=== PATIENT | male | born 1960 ===

== ENCOUNTER 2017-01-15 09:33 | Emergency (ER) | payer BC ==
[2017-01-15 09:48] VITALS: BMI 29.1
[2017-01-15 10:39] LABS: BASO % 0.4 % (0.0-2.0); EOS # 0.2 K/uL (0.0-0.7); EOS % 1.5 % (0.0-4.0); HEMOGLOBIN 14.4 g/dL (12.0-18.0); LYMPH # 2.2 K/uL (1.0-4.3); LYMPH % 20.6 % (20.0-40.0); MEAN CELL VOLUME 89.5 fl (80.0-94.0); MEAN CORPUSCULAR HEMOGLOBIN 29.6 pg (27.0-31.0); MEAN CORPUSCULAR HGB CONC 33.1 g/dL (33.0-37.0); MEAN PLATELET VOLUME 9.1 fl (7.2-11.7); MONO # 0.9 K/uL (0.0-0.8); MONO % 7.9 % (0.0-10.0); NEUT # 7.5 K/uL (1.8-7.0); NEUT % 69.6 % (50.0-75.0); NRBC % 0.1 % (0.0-0.0); RBC 4.86 Mil/uL (4.40-5.90); RED CELL DISTRIBUTION WIDTH 13.2 % (11.5-14.5); WHITE BLOOD COUNT 10.8 K/uL (4.8-10.8)
[2017-01-15 10:49] LABS: ALB/GLOB RATIO 1.5 (1.0-2.1); ALBUMIN 4.4 g/dL (3.5-5.0); ALT/SGPT 46 U/L (21-72); AST/SGOT 26 U/L (17-59); BLOOD UREA NITROGEN 21 mg/dl (9-20); CALCIUM 9.3 mg/dL (8.4-10.2); GFR AFRICAN-AMERICAN > 60; GFR NON-AFRICAN AMERICAN > 60; LIPASE 158 U/L (23-300)
[2017-01-15] MEDS ORDERED: Iohexol 300 100 ML IJ ONE (10:54)
[2017-01-15] MEDS ORDERED: Sodium Chloride 0.9% 50 ML IV ONE (10:54)
[2017-01-15 11:02] LABS: INR 0.9 (0.9-1.2); PARTIAL THROMBOPLASTIN TIME 30.7 Seconds (25.6-37.1)
--- NOTE | 2017-01-15 11:40 | ED PDOC ---
HPI: Abdomen Time Seen by Provider: 01/15/17 09:53 Chief Complaint (Nursing): Abdominal Pain Chief Complaint (Provider): Abdominal Pain History Per: Patient History/Exam Limitations: no limitations Onset/Duration Of Symptoms: Days (x 2) Current Symptoms Are (Timing): Still Present Location Of Pain/Discomfort: RLQ Additional Complaint(s): Sean Kahn is a 56 y/o male with a past medical history of hypertension who presents to the emergency department complaining of abdominal pain in the right lower quadrant, ongoing for 2 days. Patient reports having similar episodes of pain in the past, and in 07/[address] scan at a hospital in [place] that was reportedly normal. He was diagnosed with constipation and treated with pain medication, but now the pain has returned. Patient denies fever, nausea, vomiting, diarrhea, constipation, dysuria, and incontinence. PMD: Unknown Past Medical History Reviewed: Historical Data, Nursing Documentation, Vital Signs Vital Signs: Last Vital Signs Temp 98.4 F 01/15/17 14:00 Pulse 64 01/15/17 14:00 Resp 18 01/15/17 14:00 BP 119/71 01/15/17 14:00 Pulse Ox 97 01/15/17 14:00 - Medical History PMH: Diabetes, HTN Denies: Chronic Kidney Disease - Surgical History Surgical History: No Surg Hx - Family History Family History: States: Unknown Family Hx - Social History Current smoker - smoking cessation education provided: No Alcohol: Social Drugs: Denies - Immunization History Hx Tetanus Toxoid Vaccination: No Hx Influenza Vaccination: No Hx Pneumococcal Vaccination: No - Home Medications Home Medications: Ambulatory Orders Medication Instructions Recorded Ciprofloxacin [Cipro] 500 mg PO BID #14 tab 01/15/17 metroNIDAZOLE [Flagyl] 500 mg PO TID #21 tab 01/15/17 traMADol [Ultram] 50 mg PO Q6H PRN #5 tab 01/15/17 - Allergies Allergies/Adverse Reactions: Allergies Allergy/AdvReac Type Severity Reaction Status Date / Time No Known Allergies Allergy Verified 01/15/17 09:53 Review of Systems ROS Statement: Except As Marked, All Systems Reviewed And Found Negative Constitutional: Negative for: Fever Gastrointestinal: Positive for: Abdominal Pain (Right lower quadrant). Negative for: Nausea, Vomiting, Diarrhea, Constipation Genitourinary Male: Negative for: Dysuria, Frequency, Incontinence Physical Exam - Reviewed Nursing Documentation Reviewed: Yes Vital Signs Reviewed: Yes - Physical Exam Appears: Positive for: Non-toxic, No Acute Distress Head Exam: Positive for: ATRAUMATIC, NORMAL INSPECTION, NORMOCEPHALIC Skin: Positive for: Normal Color, Warm, Dry Eye Exam: Positive for: EOMI, Normal appearance, PERRL ENT: Positive for: Normal ENT Inspection Neck: Positive for: Normal, Painless ROM, Supple Cardiovascular/Chest: Positive for: Regular Rate, Rhythm. Negative for: Murmur Respiratory: Positive for: Normal Breath Sounds. Negative for: Accessory Muscle Use, Respiratory Distress Gastrointestinal/Abdominal: Positive for: Tenderness (Right-sided mid abdominal tenderness). Negative for: Normal Exam, Guarding, Rebound Back: Positive for: Normal Inspection. Negative for: Vertebral Tenderness Extremity: Positive for: Normal ROM. Negative for: Pedal Edema, Deformity Neurologic/Psych: Positive for: Alert, Oriented - Laboratory Results Result Diagrams: 01/15/17 10:25 01/15/17 10:25 Medical Decision Making Medical Decision Making: Time: 10:25 Initial Impression: Abdominal Pain Initial Plan: --Labs --EKG --Morphine 2 mg IV --Pending CT Abd/Pelvis --Reevaluation Time: 11:45 --Patient with persistent pain --Morphine 2 mg IV Time: 12:08 CT Abd/Pelvis FINDINGS: LOWER THORAX: Bibasilar atelectasis. No significant pleural effusion or pneumothorax. Small hiatal hernia/distal esophageal wall thickening. LIVER: Hypoattenuation of the liver compatible with hepatic steatosis. GALLBLADDER AND BILE DUCTS: Unremarkable. PANCREAS: Unremarkable. SPLEEN: Unremarkable. ADRENALS: Unremarkable. KIDNEYS AND URETERS: 18 mm right renal low-density lesion. 9 mm right upper pole renal hypodensity, too small to characterize. No hydronephrosis. No obstructing calculus. VASCULATURE: No aortic aneurysm. BOWEL: Stomach is nondistended. Lack of oral contrast limits evaluation for bowel pathology. Bowel loops appear within normal limits of caliber without evidence of obstruction. Extensive diverticulosis of the sigmoid colon. Mild associated wall thickening. No significant pericolonic inflammatory changes evident. APPENDIX: The appendix appears within normal limits of caliber. No secondary signs of acute appendicitis. PERITONEUM: No significant free fluid. No definite free air. LYMPH NODES: No bulky adenopathy identified. BLADDER: Unremarkable. REPRODUCTIVE: The prostate gland measures approximately 3.9 x 4.2 cm. BONES: Osseous demineralization. 6 mm sclerotic focus within the sacrum, possibly bone island. OTHER FINDINGS: None. IMPRESSION: 18 mm right renal low-density lesion. 9 mm right upper pole renal hypodensity, too small to characterize. No hydronephrosis. No obstructing calculus. Extensive diverticulosis of the sigmoid colon. Mild associated wall thickening. No significant pericolonic inflammatory changes evident. Correlate clinically for possibility of acute diverticulitis. Hypoattenuation of the liver compatible with hepatic steatosis. Additional findings as above. Time: 12:45 --Morphine 2 mg IV Time: 12:52 --Ciprofloxacin 400 mg in 200 ml IV --Flagyl 500mg/100mL NS IV Time: 13:55 Clinical Impression: Diverticulitis Upon provider evaluation patient is medically stable, and requires no further treatment in the ED at this time. Patient will be discharged with Rx for Ciprofloxacin, Flagyl, and Tramadol. Counseling was provided and all questions were answered regarding diagnosis and need for follow up with PMD within 2 days. There is agreement to discharge plan. Return if symptoms persist or worsen. Scribe Attestation: Documented by Isabel Veliz, acting as a scribe for Jane Kim MD Provider Scribe Attestation: All medical record entries made by the Scribe were at my direction and personally dictated by me. I have reviewed the chart and agree that the record accurately reflects my personal performance of the history, physical exam, medical decision making, and the department course for this patient. I have also personally directed, reviewed, and agree with the discharge instructions and disposition. Disposition - Clinical Impression Clinical Impression: Diverticulitis - Patient ED Disposition Is Patient to be Admitted: No Doctor Will See Patient In The: Office Counseled Patient/Family Regarding: Studies Performed, Diagnosis, Need For Followup, Rx Given - Disposition Disposition: Routine/Home Disposition Time: 13:55 Condition: STABLE Additional Instructions: FOLLOW-UP WITH YOUR PMD WITHIN 2 DAYS FOR REEVALUATION. Prescriptions: Ciprofloxacin [Cipro] 500 mg PO BID #14 tab metroNIDAZOLE [Flagyl] 500 mg PO TID #21 tab traMADol [Ultram] 50 mg PO Q6H PRN #5 tab PRN Reason: Pain, Severe (8-10) Instructions: Diverticulitis (ED) Print Language: TAJIK
--- NOTE | 2017-01-15 12:10 | CT ---
PROCEDURE: CT Abdomen and Pelvis with contrast HISTORY: R sided abd pain COMPARISON: None available TECHNIQUE: Contrast dose: 95 mL Omnipaque 300 Radiation dose: Total exam DLP = 962.81 mGy-cm. This CT exam was performed using one or more of the following dose reduction techniques: Automated exposure control, adjustment of the mA and/or kV according to patient size, and/or use of iterative reconstruction technique. FINDINGS: LOWER THORAX: Bibasilar atelectasis. No significant pleural effusion or pneumothorax. Small hiatal hernia/distal esophageal wall thickening. LIVER: Hypoattenuation of the liver compatible with hepatic steatosis. GALLBLADDER AND BILE DUCTS: Unremarkable. PANCREAS: Unremarkable. SPLEEN: Unremarkable. ADRENALS: Unremarkable. KIDNEYS AND URETERS: 18 mm right renal low-density lesion. 9 mm right upper pole renal hypodensity, too small to characterize. No hydronephrosis. No obstructing calculus. VASCULATURE: No aortic aneurysm. BOWEL: Stomach is nondistended. Lack of oral contrast limits evaluation for bowel pathology. Bowel loops appear within normal limits of caliber without evidence of obstruction. Extensive diverticulosis of the sigmoid colon. Mild associated wall thickening. No significant pericolonic inflammatory changes evident. APPENDIX: The appendix appears within normal limits of caliber. No secondary signs of acute appendicitis. PERITONEUM: No significant free fluid. No definite free air. LYMPH NODES: No bulky adenopathy identified. BLADDER: Unremarkable. REPRODUCTIVE: The prostate gland measures approximately 3.9 x 4.2 cm. BONES: Osseous demineralization. 6 mm sclerotic focus within the sacrum, possibly bone island. OTHER FINDINGS: None. IMPRESSION: 18 mm right renal low-density lesion. 9 mm right upper pole renal hypodensity, too small to characterize. No hydronephrosis. No obstructing calculus. Extensive diverticulosis of the sigmoid colon. Mild associated wall thickening. No significant pericolonic inflammatory changes evident. Correlate clinically for possibility of acute diverticulitis. Hypoattenuation of the liver compatible with hepatic steatosis. Additional findings as above.
[2017-01-15 12:49] LABS: SQUAMOUS EPITHIAL < 1 /hpf (0-5); URINE BILIRUBIN NEGATIVE (NEGATIVE); URINE BLOOD NEGATIVE (NEGATIVE); URINE CLARITY CLEAR (Clear); URINE COLOR YELLOW (YELLOW); URINE GLUCOSE (UA) NEG (Normal); URINE LEUKOCYTE ESTERASE NEG Leu/uL (Negative); URINE NITRATE NEGATIVE (NEGATIVE); URINE PROTEIN NEGATIVE (NEGATIVE); URINE UROBILINOGEN 0.2-1.0 mg/dL (0.2-1.0)
[2017-01-15] MEDS ORDERED: metroNIDAZOLE 500mg/100ml NS 100 ML IV STA (12:52)
[2017-01-15] MEDS ORDERED: Ciprofloxacin 400mg/200ml D5W 400 MG/200 ML BAG IV STA (12:52)
[2017-01-15] MEDS ORDERED: metroNIDAZOLE 500mg/100ml NS 100 ML IVPB ONE (13:53)
[2017-01-15] MEDS ORDERED: Ciprofloxacin 400mg/200ml D5W 400 MG/200 ML BAG IVPB ONE (13:53)
[2017-01-15 14:01] VITALS: BP 119/71; PULSE 64; RESP 18; TEMP 98.4; O2SAT 97
--- NOTE | 2017-01-16 08:00 | CARD ---
APPROVED REPORT EKG Measurement Heart [id number] <Conclusion> Normal sinus rhythm Normal ECG
== END 2017-01-15 16:12 | disposition home or self-care (01) ==
LOC: H.ER 09:33
DX: K57.30 Diverticulosis of large intestine without perforation or abscess without bleeding (principal); I10 Essential (primary) hypertension
CPT/HCPCS: 74177; 80053; 81003; 82948; 83690; 85025; 85610; 85730; 93005; 96365; 96367; 96375; 96376; 99284; J0744; J2270; Q9967